=== PATIENT | male | born 1980 | race Caucasian/White ===

== ENCOUNTER 2018-01-25 22:04 | Emergency (ER) | payer OTHER ==
[2018-01-25 22:08] VITALS: BP 147/108; PULSE 106; TEMP 98.2; BMI 33.4
--- NOTE | 2018-01-25 23:00 | PDOC ---
Attending Attestation - Resident Resident Name: Misty Rascon - ED Attending Attestation I have performed the following: I have examined & evaluated the patient, The case was reviewed & discussed with the resident, I agree w/resident's findings & plan, Exceptions are as noted - HPI HPI: 01/25/18 23:14 pt [facility] and i did not eval this patient - Physicial Exam PE: 01/25/18 23:14 pt [facility] - i did not eval this patient - Medical Decision Making 01/25/18 23:00 I, Dr. Susan Castro, DO, attest that this document has been prepared under my direction and personally reviewed by me in its entirety. I further attest, that it accurately reflects all work, treatment, procedures and medical decision -making performed by me. 01/25/18 23:14 pt [facility] - i did not eval this patient.
--- NOTE | 2018-01-26 06:52 | PDOC ---
History of Present Illness - General Chief Complaint: Injury Stated Complaint: INJURY Time Seen by Provider: 01/25/18 22:56 - History of Present Illness Initial Comments: 01/26/18 06:52 Pt left before medical evaluation. I was not able to evaluate patient. Past History - Past Medical History Allergies/Adverse Reactions: Allergies Allergy/AdvReac Type Severity Reaction Status Date / Time No Known Allergies Allergy Verified 01/25/18 22:07 Home Medications: Ambulatory Orders Glyburide 5 mg PO DAILY 01/25/18 Metformin HCl [Glucophage] 1,000 mg PO BID 01/25/18 Clindamycin [Cleocin -] 300 mg PO TID #30 capsule 01/26/18 COPD: No Diabetes: Yes - Suicide/Smoking/Psychosocial Hx Smoking History: Never smoked *Physical Exam - Vital Signs Last Vital Signs Temp Pulse Resp BP Pulse Ox 98.2 F 106 H 18 147/108 98 01/25/18 22:06 01/25/18 22:06 01/25/18 22:06 01/25/18 22:06 01/25/18 22:06 Medical Decision Making - Medical Decision Making 01/26/18 06:52 t left before medical evaluation. I was not able to evaluate patient. *DC/Admit/Observation/Transfer Diagnosis at time of Disposition: Laceration - Discharge Dispostion Disposition: LEFT BEFORE [facility] - Referrals - Patient Instructions - Post Discharge Activity
== END 2018-01-25 23:16 | disposition left against medical advice (07) ==
LOC: JER 22:04
DX: Z53.21 Procedure and treatment not carried out due to patient leaving prior to being seen by health care provider (principal)
CPT/HCPCS: 99281-25

== ENCOUNTER 2018-01-25 23:13 | Emergency (ER) | payer SELFPAY ==
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
[2018-01-25 23:24] VITALS: BP 145/98; PULSE 92; TEMP 98.7; BMI 33.4
[2018-01-26] MEDS ORDERED: PIPERACILLIN/TAZOB 3.375 GM 3.375 GM in DEXTROSE 5%-WATER - 50 ML IVPB ONE (00:26)
[2018-01-26] MEDS ORDERED: PIPERACILLIN/TAZOBACTAM 3.375 GM VIAL IVPB ONE (00:26)
[2018-01-26] MEDS ORDERED: KETOROLAC TROMETHAMINE 30 MG/1 ML VIAL IVPUSH ONE (00:43)
[2018-01-26] MEDS ORDERED: KETOROLAC TROMETHAMINE 30 MG/1 ML VIAL ONE (00:49)
== END 2018-01-26 01:26 | disposition home or self-care (01) ==
LOC: FER 23:13
PROC: 3E0333Z Introduction of Anti-inflammatory into Peripheral Vein, Percutaneous Approach (ICD-10-PCS; principal; 2018-01-25)
PROC: 3E03329 Introduction of Other Anti-infective into Peripheral Vein, Percutaneous Approach (ICD-10-PCS; 2018-01-25)
DX: T14.8XXA Other injury of unspecified body region, initial encounter (principal); E11.9 Type 2 diabetes mellitus without complications; W18.39XA Other fall on same level, initial encounter; Y93.55 Activity, bike riding; Y92.89 Other specified places as the place of occurrence of the external cause
CPT/HCPCS: 70450-TC; 70486-TC; 71046-TC-FY; 71101-TC-FY; 99282-25